=== PATIENT | male | born 1990 | race Caucasian/White ===

== ENCOUNTER 2018-10-07 08:38 | Outpatient (CLI) | payer SELFPAY | END 2018-10-07 08:39 | disposition critical access hospital (66) | LOC: EMS 08:38 | PROVIDERS: ATTEND Surgery | DX: M79.601 Pain in right arm (principal); V48.5XXA Car driver injured in noncollision transport accident in traffic accident, initial encounter; Y92.413 State road as the place of occurrence of the external cause | CPT/HCPCS: A0425; A0429 ==

== ENCOUNTER 2018-10-07 08:52 | Emergency (ER) | payer SELFPAY ==
[2018-10-07 08:58] VITALS: BP 138/91
[2018-10-07] MEDS ORDERED: ACETAMINOPHEN 325 MG TABLET PO STA (09:05)
[2018-10-07] MEDS ORDERED: IBUPROFEN 400 MG TABLET PO STA (09:05)
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
== END 2018-10-07 10:39 | disposition home or self-care (01) ==
LOC: ED 08:52
DX: S40.021A Contusion of right upper arm, initial encounter (principal); V89.2XXA Person injured in unspecified motor-vehicle accident, traffic, initial encounter; F17.200 Nicotine dependence, unspecified, uncomplicated
CPT/HCPCS: 73060; 73070; 73090; 99283; A9270